=== PATIENT | female | born 1960 | race Caucasian/White ===

== ENCOUNTER → 2020-11-05 11:29 | Outpatient (CLI) | payer BC, SELFPAY ==
--- NOTE | ~2020-11-05 | MM_ITS ---
EXAMINATION: MM screening [facility] BI w [place] HISTORY: Screening TECHNIQUE: Craniocaudal and mediolateral oblique 3-D tomosynthesis images were obtained and synthetic 2-D images were generated. CAD analysis was submitted and interpreted. COMPARISON: Comparison to multiple prior studies sequentially, with oldest reviewed study dated 12/2012. BREAST PARENCHYMAL COMPOSITION: There are scattered areas of fibroglandular density. FINDINGS: There is no evidence of suspicious mass, calcification, or architectural distortion to sugg est malignancy in either breast. There has been no suspicious interval change. IMPRESSION: 1. No mammographic evidence of malignancy. 2. Recommend routine screening mammography in one year. BI-RADS Category 1: Negative Reviewed, dictated and finalized at location A.
== END ==
PROVIDERS: Visit Provider Nurse Practitioner Obstetrics & Gynecology
DX: Z12.31 Encounter for screening mammogram for malignant neoplasm of breast (principal)
CPT/HCPCS: 77063; 77067

== ENCOUNTER → 2021-01-21 10:17 | Outpatient (CLI) | payer BC, SELFPAY ==
--- NOTE | ~2021-01-21 | DEXA_ITS ---
Bone Density Report Name: Lola Calle Age: 60 Sex: Female Ethnicity: White Date of : 1960 Indication: osteopenia; prior fracture; secondary osteoporosis; postmenopausal Referring Provider: Aristeo, Yuliana Munoz Study: Bone densitometry was performed. Exam Date: January 21, 2021 Accession number: [id number] Bone Density: Region BMD T-score Z-score Classification AP Spine (L1-L4) 0.919 -1.2 0.4 Osteopenia Femoral Neck (Left) 0.808 -0.4 1.0 Normal Total Hip (Left) 0.937 0.0 1.0 Normal Femoral Neck (Right) 0.793 -0.5 0.8 Normal Total Hip (Right) 0.977 0.3 1.3 Normal Total Hip Mean 0.957 0.2 1.2 Normal World Health Organization criteria for BMD impression classify patients as: Normal (T-score at or above -1.0), Osteopenia (T-score between -1.0 and -2.5), or Osteoporosis (T-score at or below -2.5). 10-year Fracture Risk(1): Major Osteoporotic Fracture 11% Hip Fracture 0.4% Reported Risk Factors: [place] (), Neck BMD=0.793, BMI=38.6, previous fracture, secondary osteoporosis (1) FRAX(R) Version 3.08. Fracture probability calculated for an untreated patient. Fracture probability may be lower if the patient has received treatment. Previous Exams: Region Exam Age BMD T-score BMD Change BMD Change Date g/cm2 vs Baseline vs Previous AP Spine(L1-L4) 01/21/2021 60 0.919 -1.2 -0.006 -0.012 12/13/2018 58 0.931 -1.1 0.006 0.006 05/11/2011 50 0.925 -1.1 Total Hip(Left) 01/21/2021 60 0.937 0.0 0.017 0.015 12/13/2018 58 0.922 -0.2 0.002 0.002 05/11/2011 50 0.920 -0.2 Total Hip(Right) 01/21/2021 60 0.977 0.3 0.011 0.008 12/13/2018 58 0.970 0.2 0.003 0.003 05/11/2011 50 0.967 0.2 *Denotes significance at 95% confidence level, LSC for AP Spine = 0.022 g/cm2, LSC for Total Hip = 0.027 g/cm2 Clinical Information Provided by Patient: Has had a low trauma fracture Has secondary osteoporosis Has used the following medications: Vitamin D, Calcium Patient maximum height was 64 Menopause Age: 37 No regular weight bearing exercise Drinks caffeinated beverages Onset of menses at age 13 Number of children 0 Impression: The patient has low bone mass, based on the Total Spine T-score. The patient has an estimated ten-year risk of hip fracture of 0.4% and an estimated ten-year ri
== END ==
PROVIDERS: Visit Provider Nurse Practitioner Obstetrics & Gynecology
DX: M85.88 Other specified disorders of bone density and structure, other site (principal)
CPT/HCPCS: 77080

== ENCOUNTER → 2022-01-22 14:39 | Outpatient (CLI) | payer BC, SELFPAY ==
--- NOTE | ~2022-01-22 | MM_ITS ---
EXAMINATION: MM screening [facility] BI w [place] HISTORY: Screening mammogram TECHNIQUE: Craniocaudal and mediolateral oblique 3-D tomosynthesis images were obtained and synthetic 2-D images were generated. CAD analysis was submitted and interpreted. COMPARISON: 11/05/2020, 12/13/2018, 12/01/2016 bilateral screening mammogram examinations BREAST PARENCHYMAL COMPOSITION: There are scattered areas of fibroglandular density. FINDINGS: There is no evidence of suspicious mass, calcification, or architectural distortion to sugg est malignancy in either breast. There has been no suspicious interval change. IMPRESSION: 1. No mammographic evidence of malignancy. 2. Recommend routine screening mammography in one year. BI-RADS Category 1: Negative Reviewed, dictated and finalized at location A.
== END ==
PROVIDERS: Visit Provider Nurse Practitioner Obstetrics & Gynecology
DX: Z12.31 Encounter for screening mammogram for malignant neoplasm of breast (principal)
CPT/HCPCS: 77063; 77067

== ENCOUNTER 2023-03-14 11:31 | Outpatient (CLI) | payer BC, SELFPAY ==
--- NOTE | ~2023-03-14 | XR_ITS ---
EXAMINATION: XR chest 2V DATE: 03/14/2023 12:25 INDICATION: Vasculitis limited to the skin, unspecified TECHNIQUE: PA and lateral views of the chest are obtained. COMPARISON: 05/14/2019 FINDINGS: The lungs are free of acute opacities. No pleural effusion or pneumothorax. The cardiomedia stinal silhouette is normal. The visualized bones and soft tissues are unremarkable. Surgical clips i n the right upper quadrant are likely from prior cholecystectomy. IMPRESSION: 1. No acute cardiopulmonary abnormality. Reviewed, dictated and finalized at location B. [employer]
[2023-03-14 12:37] LABS: Creatinine Urine 55.4 mg/dL; Total Protein Urine Random 8 mg/dL; Ur Ttl Prot Creatinine Ratio 0.14 mg/mg (0-0.20)
[2023-03-14 12:43] LABS: Alanine Aminotransferase 21 U/L (6-35); Albumin Level 4.3 g/dL (3.5-5.1); Alkaline Phosphatase 76 U/L (38-126); Anion Gap 6 mmol/L (8-16); Aspartate Amino Transferase 26 U/L (14-36); Bilirubin,Total 0.8 mg/dL (0.2-1.3); Blood Urea Nitrogen 11 mg/dL (7-17); CRP 0.9 mg/dL (<1.0); Calcium 9.3 mg/dL (8.4-10.2); Carbon Dioxide 29 mmol/L (22-30); Chloride 101 mmol/L (98-107); Estimated Glomerular Filt Rate > 60; Glucose 101 mg/dL (65-110); Potassium 3.8 mmol/L (3.4-5.0); Sodium 136 mmol/L (137-145); Uric Acid 5.6 mg/dL (2.5-7.5)
[2023-03-14 12:49] LABS: Complement C3 110 mg/dL (88-165)
[2023-03-14 13:00] LABS: Vitamin D 25 Hydroxy 45.9 ng/mL
[2023-03-14 13:13] LABS: Hepatitis B Surface Antigen Negative (Negative)
[2023-03-14 13:30] LABS: Hepatitis B Surface Anti Res Negative; Hepatitis C Virus Antibody Negative (Negative)
[2023-03-14 13:34] LABS: Erythrocyte Sedimentation Rate 18 mm/hr (0-20)
[2023-03-14 13:36] LABS: Hematocrit 40.8 % (37.0-47.0); Hemoglobin 13.2 g/dL (12.0-15.0); Mean Corpuscular HGB Conc 32.4 g/dl (32-36); Mean Corpuscular Hemoglobin 32.6 pg (26-34); Mean Corpuscular Volume 100.7 fl (80-100); Mean Platelet Volume 11.6 fl (7.4-10.4); Platelet Count Result 252 k/mm3 (150-375); Red Blood Count 4.05 M/mm3 (4.2-5.4); Red Cell Distribution Width 13.4 % (11.5-14.5); White Blood Count 6.6 K/mm3 (4.5-10.0)
[2023-03-17 12:32] LABS: Myeloperoxidase Ab <1.0 AI (<1.0)
[2023-03-17 13:15] LABS: PNL A Neg Control 0; PNL B Corr Neg Control 0; T SPOT NEG CONTROL Passed; T SPOT POS CONTROL Passed; T Spot TB Result Negative (Negative)
[2023-03-18 12:41] LABS: Anti Cyclic Citrullinated Pept <16 Units (<20)
[2023-03-19 23:36] LABS: Angiotensin Converting Enzyme 72 U/L (9-67)
== END 2023-03-14 11:32 | disposition home or self-care (01) ==
LOC: ANHLAB 11:32
PROVIDERS: Visit Provider Internal Medicine
DX: L95.9 Vasculitis limited to the skin, unspecified (principal); R91.1 Solitary pulmonary nodule; M19.90 Unspecified osteoarthritis, unspecified site; M06.041 Rheumatoid arthritis without rheumatoid factor, right hand; M06.042 Rheumatoid arthritis without rheumatoid factor, left hand
CPT/HCPCS: 36415; 71046; 80053; 82164; 82306; 82570; 84156; 84550; 85027; 85652; 86036; 86140; 86160; 86200; 86481; 86706; 86803; 87340

== ENCOUNTER 2023-09-23 11:29 | Outpatient (CLI) | payer BC, SELFPAY ==
--- NOTE | ~2023-09-23 | MM_ITS ---
EXAMINATION: MM screening [facility] BI w [place] HISTORY: Screening mammogram TECHNIQUE: Craniocaudal and mediolateral oblique 3-D tomosynthesis images were obtained and synthetic 2-D images were generated. CAD analysis was submitted and interpreted. COMPARISON: 01/22/2022, 11/05/2020 bilateral screening mammogram examinations BREAST PARENCHYMAL COMPOSITION: There are scattered areas of fibroglandular density. FINDINGS: There is no evidence of suspicious mass, calcification, or architectural distortion to sugg est malignancy in either breast. There has been no suspicious interval change. IMPRESSION: 1. No mammographic evidence of malignancy. 2. Recommend routine screening mammography in one year. BI-RADS Category 1: Negative Reviewed, dictated and finalized at location B.
--- NOTE | ~2023-09-23 | DEXA_ITS ---
Bone Density Report Name: KALPANA PARKER Age: 63 Sex: Female Ethnicity: White Date of : 1960 Indication: osteopenia; height loss; prior fracture; rheumatoid arthritis; postmenopausal Referring Provider: Aristeo, Yuliana Munoz Study: Bone densitometry was performed. Exam Date: September 23, 2023 Accession number: [id number] Bone Density: Region BMD T-score Z-score Classification AP Spine (L1-L4) 0.968 -0.7 1.0 Normal Femoral Neck (Left) 0.752 -0.9 0.6 Normal Total Hip (Left) 0.977 0.3 1.5 Normal Femoral Neck (Right) 0.832 -0.2 1.3 Normal Total Hip (Right) 0.946 0.0 1.2 Normal Total Hip Mean 0.962 0.2 1.4 Normal World Health Organization criteria for BMD impression classify patients as: Normal (T-score at or above -1.0), Osteopenia (T-score between -1.0 and -2.5), or Osteoporosis (T-score at or below -2.5). 10-year Fracture Risk: FRAX not reported because: All T-scores for Spine Total, Hip Total, Femoral Neck at or above -1.0 Previous Exams: Region Exam Age BMD T-score BMD Change BMD Change Date g/cm2 vs Baseline vs Previous AP Spine(L1-L4) 09/23/2023 63 0.968 -0.7 0.043* 0.049* 01/21/2021 60 0.919 -1.2 -0.006 -0.012 12/13/2018 58 0.931 -1.1 0.006 0.006 05/11/2011 50 0.925 -1.1 Total Hip(Left) 09/23/2023 63 0.977 0.3 0.057* 0.040* 01/21/2021 60 0.937 0.0 0.017 0.015 12/13/2018 58 0.922 -0.2 0.002 0.002 05/11/2011 50 0.920 -0.2 Total Hip(Right) 09/23/2023 63 0.946 0.0 -0.021 -0.032* 01/21/2021 60 0.977 0.3 0.011 0.008 12/13/2018 58 0.970 0.2 0.003 0.003 05/11/2011 50 0.967 0.2 *Denotes significance at 95% confidence level, LSC for AP Spine = 0.022 g/cm2, LSC for Total Hip = 0.027 g/cm2 Clinical Information Provided by Patient: Has had a low trauma fracture Has rheumatoid arthritis Has 3 or more alcoholic drinks per day Has used the following medications: Vitamin D, Calcium, HYDROXYCHLOROQUINE Patient maximum height was 64.0 Menopause Age: 37 No regular weight bearing exercise Drinks caffeinated beverages Onset of menses at age 13 Number of children 0 Impression: The patient has normal bone mass. The patient has risk factors, including: excessive alcohol use, previous fracture. The BMD for the Total Hip(Righ
== END 2023-09-23 11:30 ==
LOC: MICIMG 11:30
PROVIDERS: PCP Nurse Practitioner Adult Health; Visit Provider Nurse Practitioner Obstetrics & Gynecology
DX: Z12.31 Encounter for screening mammogram for malignant neoplasm of breast (principal); M81.0 Age-related osteoporosis without current pathological fracture; Z13.820 Encounter for screening for osteoporosis
CPT/HCPCS: 77063; 77067; 77080